=== PATIENT | female | born 1955 | race African-American/Black ===

== ENCOUNTER → 2019-02-15 16:54 | Outpatient (CLI) | payer MEDICARE, MEDICAID ==
[2015-11-09 14:24] VITALS: BMI 32.9
[~2019-02-15 16:54] MED LIST: GLUCOPHAGE500 MG PO; VALIUM5 MG PO
== END | disposition home or self-care (01) ==
LOC: D.LABREF 16:54
PROVIDERS: ATTEND Urology
DX: R82.90 Unspecified abnormal findings in urine (principal); R31.9 Hematuria, unspecified